=== PATIENT | male | born 1945 | race Caucasian/White ===

== ENCOUNTER 2017-10-19 03:11 | Inpatient (IN) | payer MEDICARE, OTHER ==
[~2017-10-19] VITALS: Ht 185.4 cm; Wt 103.8 kg
[~2017-10-19 03:11] MED LIST: AMIO200T42 PO; AMLO2.5T PO; ASPI-496 PO; CARV-39 PO; CLOP75TA PO; CYAN10005 PO; FOLI-17 PO; IBUP200T49 PO; LISI40TA PO; OMEP20TA62 PO; ROSU10TA PO; SILD100T PO; TRAZ100T15 PO
[2017-10-19 04:26] VITALS: BP 151/70
[2017-10-19] MEDS ORDERED: ACETAMINOPHEN 325 MG TABLET PO PRN ×2 (04:30→06:30)
[2017-10-19] MEDS ORDERED: ENOXAPARIN 40 MG/0.4 ML SQ SCH (04:30)
[2017-10-19] MEDS ORDERED: TEMAZEPAM 15 MG CAPSULE PO PRN (04:30)
[2017-10-19] MEDS ORDERED: ONDANSETRON 2MG/ML, 2ML IVPush PRN ×2 (04:30→06:30)
[2017-10-19] MEDS ORDERED: DOCUSATE 100 MG CAPSULE PO PRN ×2 (04:30→06:30)
[2017-10-19] MEDS ORDERED: AMIODARONE 900 MG in DEXTROSE 5% 482 ML IV PRN (05:00)
[2017-10-19 05:53] LABS: BASOPHILS # (AUTO) 0.03 x10^3/uL (0-0.1); BASOPHILS % (AUTO) 1 % (0-1); EOSINOPHILS # (AUTO) 0.17 x10^3/uL (0-0.4); EOSINOPHILS % (AUTO) 3 % (1-7); LYMPHOCYTES # (AUTO) 1.39 x10^3/uL (1-3.4); LYMPHOCYTES % (AUTO) 26 % (22-44); MD NO; MEAN CORPUSCULAR HEMOGLOBIN 33.5 pg (27.5-34.5); MEAN CORPUSCULAR HGB CONC 33.8 g/dL (33.2-36.2); MEAN CORPUSCULAR VOLUME 99.1 fL (81-97); MEAN PLATELET VOLUME 8.2 fL (7.4-10.4); MONOCYTES # (AUTO) 0.58 x10^3/uL (0.2-0.8); MONOCYTES % (AUTO) 11 % (2-9); NEUTROPHILS # (AUTO) 3.31 x10^3/uL (1.8-6.8); NEUTROPHILS % (AUTO) 61 % (42-75); PLATELET COUNT 121 x10^3/uL (130-400); RED BLOOD COUNT 3.68 x10^6/uL (4.38-5.82); RED CELL DISTRIBUTION WIDTH 13.9 % (9.4-14.8)
[2017-10-19] MEDS ORDERED: ENALAPRILAT 1.25 MG/ML, 2ML IVPush PRN (06:30)
[2017-10-19] MEDS ORDERED: morphine SULFATE 10 MG/ML, 1ML IVPush PRN (06:30)
[2017-10-19] MEDS ORDERED: BISACODYL 10 MG SUPP PR PRN (06:30)
[2017-10-19] MEDS ORDERED: POLYETHYLENE GLYCOL 17 GM PACKET PO PRN (06:30)
[2017-10-19] MEDS: HEPARIN 5,000 UNITS/ML, 1ML SQ SCH ×3 (06:30→23:19)
[2017-10-19] MEDS ORDERED: hydrALAzine 20 MG/ML, 1ML IVPush PRN (06:30)
[2017-10-19] MEDS ORDERED: OXYcodone IR 5MG TABLET PO PRN (06:30)
[2017-10-19 06:50] VITALS: BP 130/65
[2017-10-19] MEDS ORDERED: LOVENOX/HEPARIN MC SCH (07:00)
[2017-10-19 07:51] LABS: CHOLESTEROL, TOTAL 93 mg/dL (140-239); TRIGLYCERIDES 84 mg/dL (50-200); VLDL CHOLESTEROL 17 mg/dL (0-25)
[2017-10-19 07:55] LABS: FREE T4 (FREE THYROXINE) 1.48 ng/dL (0.76-1.46); HDL CHOL % 33 % (26-37); HDL CHOLESTEROL (DIRECT) 31 mg/dL (40-60); LDL CHOLESTEROL,CALCULATED 45 mg/dL (54-169); LDL/HDL RATIO 1.5 (0.5-3.0); TROPONIN I 0.109 ng/mL (0.000-0.045)
[2017-10-19 08:17] LABS: THYROID STIMULATING HORMONE 0.785 mIU/L (0.358-3.740)
[2017-10-19 08:30] VITALS: BP 99/72
[2017-10-19 09:40] LABS: MICROSCOPIC NOT IND
[2017-10-19 09:54] LABS: CULTURE INDICATED? NO
[2017-10-19] MEDS: ASPIRIN 81 MG TABLET EC PO SCH (11:34)
[2017-10-19] MEDS: AMLODIPINE 5 MG TABLET PO SCH (11:34)
[2017-10-19] MEDS: FOLIC ACID 1 MG TABLET PO SCH (11:34)
[2017-10-19] MEDS: CARVEDILOL 25 MG TABLET PO SCH ×2 (11:34→21:29)
[2017-10-19] MEDS: OMEPRAZOLE 20 MG CAPSULE.DR PO SCH (11:35)
[2017-10-19] MEDS: CLOPIDOGREL 75 MG TABLET PO SCH (11:35)
[2017-10-19] MEDS: LISINOPRIL 20 MG TABLET PO SCH (11:36)
[2017-10-19] MEDS: CYANOCOBALAMIN 1,000 MCG TABLET PO SCH (11:36)
[2017-10-19 12:44] LABS: TROPONIN I 0.083 ng/mL (0.000-0.045)
[2017-10-19 14:00] VITALS: BP 123/58
[2017-10-19 16:19] VITALS: BP 129/69
[2017-10-19 19:46] VITALS: BP 124/65
[2017-10-19] MEDS ORDERED: AMIO200T42 PO (21:19)
[2017-10-19] MEDS ORDERED: METF500T4 PO (21:19)
[2017-10-19] MEDS ORDERED: ATOR40TA78 PO (21:19)
[2017-10-19] MEDS: TRAZODONE 100MG TABLET PO SCH (21:27)
[2017-10-19] MEDS: TEMPLATE NON-FORMULARY MED. (Rosuvastatin Calcium** (Crestor**) 10 MG) HOMEMEDPO SCH (21:29)
[2017-10-20 01:37] VITALS: BP 136/64
[2017-10-20 05:46] LABS: CHLORIDE 110 mmol/L (98-107)
[2017-10-20 05:54] LABS: ALANINE AMINOTRANSFERASE 25 U/L (12-78); ALBUMIN 3.1 g/dL (3.4-5.0); ALKALINE PHOSPHATASE 115 U/L (45-117); ANION GAP 3 mmol/L (5-15); BILIRUBIN,TOTAL 0.5 mg/dL (0.2-1.0); CALCIUM 8.5 mg/dL (8.5-10.1); CREATININE 0.84 mg/dL (0.7-1.3); TOTAL PROTEIN 6.4 g/dL (6.4-8.2)
[2017-10-20 07:05] VITALS: BP 147/62
[2017-10-20] MEDS ORDERED: ERGOCALCIFEROL 50,000 UNIT CAPSULE PO SCH (08:30)
[2017-10-20] MEDS: AMLODIPINE 5 MG TABLET PO SCH (08:34)
[2017-10-20] MEDS: LISINOPRIL 20 MG TABLET PO SCH (08:35)
[2017-10-20] MEDS: CYANOCOBALAMIN 1,000 MCG TABLET PO SCH (08:35)
[2017-10-20] MEDS: OMEPRAZOLE 20 MG CAPSULE.DR PO SCH (08:36)
[2017-10-20] MEDS: ASPIRIN 81 MG TABLET EC PO SCH (08:36)
[2017-10-20] MEDS: FOLIC ACID 1 MG TABLET PO SCH (08:36)
[2017-10-20] MEDS: CLOPIDOGREL 75 MG TABLET PO SCH (08:37)
[2017-10-20] MEDS: HEPARIN 5,000 UNITS/ML, 1ML SQ SCH ×3 (08:37→23:13)
[2017-10-20] MEDS ORDERED: AMIODARONE 200 MG TABLET ONE (08:40)
[2017-10-20] MEDS: AMIODARONE 200 MG TABLET PO SCH (08:46)
[2017-10-20] MEDS ORDERED: CARVEDILOL 25 MG TABLET PO SCH (09:00)
[2017-10-20 12:25] VITALS: BP 119/70
[2017-10-20 19:23] VITALS: BP 124/61
[2017-10-20] MEDS: TEMPLATE NON-FORMULARY MED. (Rosuvastatin Calcium** (Crestor**) 10 MG) HOMEMEDPO SCH (21:31)
[2017-10-20] MEDS: TRAZODONE 100MG TABLET PO SCH (21:31)
[2017-10-21 00:24] VITALS: BP 120/60
[2017-10-21 05:20] LABS: ANION GAP 5 mmol/L (5-15); CALCIUM 8.2 mg/dL (8.5-10.1); CHLORIDE 111 mmol/L (98-107)
[2017-10-21 05:21] LABS: CREATININE 0.87 mg/dL (0.7-1.3)
[2017-10-21] MEDS: HEPARIN 5,000 UNITS/ML, 1ML SQ SCH (07:00)
[2017-10-21 07:53] VITALS: BP 121/68
[2017-10-21] MEDS: OMEPRAZOLE 20 MG CAPSULE.DR PO SCH (08:41)
[2017-10-21] MEDS: AMIODARONE 200 MG TABLET PO SCH (08:41)
[2017-10-21] MEDS: AMLODIPINE 5 MG TABLET PO SCH (08:41)
[2017-10-21] MEDS: LISINOPRIL 20 MG TABLET PO SCH (08:41)
[2017-10-21] MEDS: ASPIRIN 81 MG TABLET EC PO SCH (08:41)
[2017-10-21] MEDS: CYANOCOBALAMIN 1,000 MCG TABLET PO SCH (08:41)
[2017-10-21] MEDS: FOLIC ACID 1 MG TABLET PO SCH (08:41)
[2017-10-21] MEDS: CLOPIDOGREL 75 MG TABLET PO SCH (08:42)
[2017-10-21] MEDS ORDERED: CARV25TA12 PO (08:49)
[2017-10-21] MEDS ORDERED: ERGO500017 PO (08:49)
[2017-10-21] MEDS ORDERED: AMIO200T42 PO (08:49)
[2017-10-21] MEDS ORDERED: CYAN10005 PO (08:49)
[2017-10-21] MEDS ORDERED: CARVEDILOL 25 MG TABLET PO SCH (09:00)
== END 2017-10-21 12:25 | disposition home or self-care (01) | DRG 309 ==
LOC: 5SO 04:21 → CCU 07:46 → 5SO 16:08
PROVIDERS: ADMIT Internal Medicine; ATTEND Internal Medicine
DX: I47.2 Ventricular tachycardia (principal); E44.0 Moderate protein-calorie malnutrition; I25.82 Chronic total occlusion of coronary artery; I25.5 Ischemic cardiomyopathy; I25.10 Atherosclerotic heart disease of native coronary artery without angina pectoris; E78.5 Hyperlipidemia, unspecified; I10 Essential (primary) hypertension; K21.9 Gastro-esophageal reflux disease without esophagitis; Z68.30 Body mass index [BMI] 30.0-30.9, adult; E55.9 Vitamin D deficiency, unspecified; E66.9 Obesity, unspecified; I25.2 Old myocardial infarction; I34.0 Nonrheumatic mitral (valve) insufficiency; I44.0 Atrioventricular block, first degree; N40.0 Benign prostatic hyperplasia without lower urinary tract symptoms; Z86.79 Personal history of other diseases of the circulatory system; Z87.891 Personal history of nicotine dependence; Z95.5 Presence of coronary angioplasty implant and graft; Z95.810 Presence of automatic (implantable) cardiac defibrillator
CPT/HCPCS: 36415; 80048; 80053; 80061; 81003; 82306; 82607; 83036; 83735; 84439; 84443; 84484; 85025; 87081; 93005; 99285; J1644; J1650; J0282; J7060

== ENCOUNTER 2018-08-16 11:24 | Emergency (ER) | payer MEDICARE, OTHER ==
[~2018-08-16] VITALS: Ht 185.4 cm; Wt 106.4 kg
[~2018-08-16 11:24] MED LIST changes: -AMLO2.5T PO; +AMLO2.5T3 PO; +ATOR40TA78 PO; +CARV25TA12 PO; +ERGO500017 PO; +METF500T17 PO; +TRAZ-137 PO; -TRAZ100T15 PO
[2018-08-16 12:11] LABS: BASOPHILS # (AUTO) 0.02 x10^3/uL (0-0.1); BASOPHILS % (AUTO) 0 % (0-1); EOSINOPHILS # (AUTO) 0.25 x10^3/uL (0-0.4); EOSINOPHILS % (AUTO) 5 % (1-7); LYMPHOCYTES # (AUTO) 1.18 x10^3/uL (1-3.4); LYMPHOCYTES % (AUTO) 22 % (22-44); MD NO; MEAN CORPUSCULAR HEMOGLOBIN 33.4 pg (27.5-34.5); MEAN CORPUSCULAR HGB CONC 33.8 g/dL (33.2-36.2); MEAN CORPUSCULAR VOLUME 98.8 fL (81-97); MEAN PLATELET VOLUME 8.5 fL (7.4-10.4); MONOCYTES # (AUTO) 0.49 x10^3/uL (0.2-0.8); MONOCYTES % (AUTO) 9 % (2-9); NEUTROPHILS # (AUTO) 3.31 x10^3/uL (1.8-6.8); NEUTROPHILS % (AUTO) 63 % (42-75); PLATELET COUNT 137 x10^3/uL (130-400); RED BLOOD COUNT 4.16 x10^6/uL (4.38-5.82); RED CELL DISTRIBUTION WIDTH 14.1 % (9.4-14.8)
[2018-08-16 12:24] LABS: ALBUMIN 3.5 g/dL (3.4-5.0); ANION GAP 6 mmol/L (5-15); CALCIUM 8.3 mg/dL (8.5-10.1); CHLORIDE 109 mmol/L (98-107); CREATININE 1.04 mg/dL (0.7-1.3)
[2018-08-16 12:34] LABS: ALANINE AMINOTRANSFERASE 29 U/L (12-78); ALKALINE PHOSPHATASE 119 U/L (45-117); BILIRUBIN,TOTAL 0.6 mg/dL (0.2-1.0); TOTAL PROTEIN 7.1 g/dL (6.4-8.2)
[2018-08-16 13:49] VITALS: BP 142/80
== END 2018-08-16 13:51 | disposition home or self-care (01) ==
LOC: ED 12:41
DX: I87.2 Venous insufficiency (chronic) (peripheral) (principal); I10 Essential (primary) hypertension
CPT/HCPCS: 36415; 71045; 80053; 83880; 85025; 93005; 93970; 99285

== ENCOUNTER → 2019-01-14 | Outpatient (CLI) | payer MEDICARE, OTHER ==
[~2019-01-14] MED LIST changes: -AMLO2.5T3 PO; +AMLO2.5T5 PO; +REGADENOSON 0.4 MG/5 ML SYRINGE ONE; -ROSU10TA PO; +ROSU10TA2 PO
== END | disposition home or self-care (01) ==
LOC: CFH 07:30
PROVIDERS: ATTEND Internal Medicine Cardiovascular Disease
DX: Z01.810 Encounter for preprocedural cardiovascular examination (principal); I25.10 Atherosclerotic heart disease of native coronary artery without angina pectoris; I10 Essential (primary) hypertension
CPT/HCPCS: 78452; 93017; 93306; A9502; J2785

== ENCOUNTER 2019-05-05 08:32 | Outpatient (CLI) | payer MEDICARE, OTHER | END 2019-05-05 23:59 | disposition home or self-care (01) | LOC: STAR 08:32 | PROVIDERS: ATTEND Neurological Surgery | DX: Z01.818 Encounter for other preprocedural examination (principal); M48.062 Spinal stenosis, lumbar region with neurogenic claudication; M47.814 Spondylosis without myelopathy or radiculopathy, thoracic region; R00.1 Bradycardia, unspecified; Z95.0 Presence of cardiac pacemaker | CPT/HCPCS: 36415; 71046; 80053; 85025; 85610; 85730; 93005 ==

== ENCOUNTER 2019-05-15 06:59 | Inpatient (IN) | payer MEDICARE, OTHER ==
[~2019-05-15] VITALS: Ht 182.9 cm; Wt 109.5 kg
[2019-05-17 06:51] VITALS: BP 109/64
== END 2019-05-17 11:50 | disposition home health service (06) | DRG 502 ==
LOC: OUT 06:59 → 4NOR 12:31 → OUT 12:35 → DCLOUNGE 05-17 11:40
PROVIDERS: ADMIT Neurological Surgery; ATTEND Neurological Surgery
PROC: 01NB0ZZ Release Lumbar Nerve, Open Approach (ICD-10-PCS; principal; 2019-05-15)
PROC: 0JU Subcutaneous Tissue and Fascia, Supplement (ICD-10-PCS; 2019-05-15)
DX: M48.061 Spinal stenosis, lumbar region without neurogenic claudication (principal); I48.91 Unspecified atrial fibrillation; I11.9 Hypertensive heart disease without heart failure; E78.5 Hyperlipidemia, unspecified; E11.9 Type 2 diabetes mellitus without complications; M54.16 Radiculopathy, lumbar region; G47.33 Obstructive sleep apnea (adult) (pediatric); Z87.891 Personal history of nicotine dependence; Z82.49 Family history of ischemic heart disease and other diseases of the circulatory system; I25.2 Old myocardial infarction; Z95.0 Presence of cardiac pacemaker; Z79.82 Long term (current) use of aspirin; Z79.02 Long term (current) use of antithrombotics/antiplatelets; Z86.73 Personal history of transient ischemic attack (TIA), and cerebral infarction without residual deficits
CPT/HCPCS: 36415; 72100; 85610; 85730; G0378; J0690; J1170; J2250; J2270; J2704; J3010; J3480; Q0162; J0330; J7120

== ENCOUNTER → 2019-07-31 | Outpatient (CLI) | payer MEDICARE, OTHER ==
[~2019-07-31] MED LIST changes: +ALFU10TA PO; +AMLO10TA8 PO; +CHOL10003 PO; +CYAN-27 PO; -CYAN10005 PO; +FINA5TAB4 PO; +HYDR-36 PO; +MAGN420T PO; -REGADENOSON 0.4 MG/5 ML SYRINGE ONE; +SODI100P18 DT; +TURM500C4 PO
== END | disposition home or self-care (01) ==
LOC: CFH 14:56
PROVIDERS: ATTEND Internal Medicine Cardiovascular Disease
DX: I25.10 Atherosclerotic heart disease of native coronary artery without angina pectoris (principal); E11.9 Type 2 diabetes mellitus without complications; E78.00 Pure hypercholesterolemia, unspecified; I10 Essential (primary) hypertension; I25.2 Old myocardial infarction; I47.2 Ventricular tachycardia; Z51.81 Encounter for therapeutic drug level monitoring; Z95.810 Presence of automatic (implantable) cardiac defibrillator; Z87.891 Personal history of nicotine dependence; Z82.49 Family history of ischemic heart disease and other diseases of the circulatory system; Z80.9 Family history of malignant neoplasm, unspecified
CPT/HCPCS: 71046

== ENCOUNTER 2019-09-02 13:28 | Outpatient (CLI) | payer MEDICARE, OTHER | END 2019-09-02 23:59 | disposition home or self-care (01) | LOC: CVU 13:28 | PROVIDERS: ATTEND Internal Medicine Cardiovascular Disease | DX: I08.3 Combined rheumatic disorders of mitral, aortic and tricuspid valves (principal); I25.10 Atherosclerotic heart disease of native coronary artery without angina pectoris; Z95.5 Presence of coronary angioplasty implant and graft | CPT/HCPCS: 93306 ==

== ENCOUNTER → 2020-01-05 | Outpatient (CLI) | payer MEDICARE, OTHER ==
[~2020-01-05] MED LIST changes: -TRAZ-137 PO; +TRAZ-175 PO
[2020-01-05 13:03] LABS: ALANINE AMINOTRANSFERASE 31 U/L (12-78); ALBUMIN 3.5 g/dL (3.4-5.0); ANION GAP 6 mmol/L (5-15); BASOPHILS # (AUTO) 0.03 x10^3/uL (0-0.1); BASOPHILS % (AUTO) 1 % (0-1); CALCIUM 9.2 mg/dL (8.5-10.1); CHLORIDE 109 mmol/L (98-107); EOSINOPHILS # (AUTO) 0.21 x10^3/uL (0-0.4); EOSINOPHILS % (AUTO) 3 % (1-7); LYMPHOCYTES # (AUTO) 1.24 x10^3/uL (1-3.4); LYMPHOCYTES % (AUTO) 20 % (22-44); MD NO; MEAN CORPUSCULAR HEMOGLOBIN 32.5 pg (27.5-34.5); MEAN CORPUSCULAR HGB CONC 33.4 g/dL (33.2-36.2); MEAN CORPUSCULAR VOLUME 97.4 fL (81-97); MEAN PLATELET VOLUME 8.3 fL (7.4-10.4); MONOCYTES # (AUTO) 0.69 x10^3/uL (0.2-0.8); MONOCYTES % (AUTO) 11 % (2-9); NEUTROPHILS # (AUTO) 4.14 x10^3/uL (1.8-6.8); NEUTROPHILS % (AUTO) 66 % (42-75); PLATELET COUNT 138 x10^3/uL (130-400); RED BLOOD COUNT 4.35 x10^6/uL (4.38-5.82); RED CELL DISTRIBUTION WIDTH 14.8 % (9.4-14.8)
[2020-01-05 13:17] LABS: ALKALINE PHOSPHATASE 108 U/L (45-117); BILIRUBIN,TOTAL 0.5 mg/dL (0.2-1.0); CHOL/HDL RATIO 3.4; CHOLESTEROL, TOTAL 140 mg/dL (140-239); HDL CHOL % 29 % (26-37); HDL CHOLESTEROL (DIRECT) 41 mg/dL (40-60); LDL CHOLESTEROL,CALCULATED 69 mg/dL (54-169); LDL/HDL RATIO 1.7 (0.5-3.0); T4 (THYROXINE) 12.7 mcg/dL (4.5-12.1); TRIGLYCERIDES 150 mg/dL (50-200); VLDL CHOLESTEROL 30 mg/dL (0-25)
== END | disposition home or self-care (01) ==
LOC: CFH 09:46
PROVIDERS: ATTEND Internal Medicine Cardiovascular Disease
DX: Z51.81 Encounter for therapeutic drug level monitoring (principal); E11.9 Type 2 diabetes mellitus without complications; E78.00 Pure hypercholesterolemia, unspecified; I25.10 Atherosclerotic heart disease of native coronary artery without angina pectoris; I25.2 Old myocardial infarction; I10 Essential (primary) hypertension; I47.2 Ventricular tachycardia; J98.11 Atelectasis; Z95.810 Presence of automatic (implantable) cardiac defibrillator
CPT/HCPCS: 36415; 71046; 80053; 80061; 84436; 84481; 85025

== ENCOUNTER 2020-02-25 09:57 | Outpatient (CLI) | payer MEDICARE, OTHER ==
[~2020-02-25 09:57] MED LIST changes: +HYDR-3246 PO; -HYDR-36 PO
[2020-02-25 10:55] LABS: BASOPHILS # (AUTO) 0.03 x10^3/uL (0-0.1); BASOPHILS % (AUTO) 1 % (0-1); EOSINOPHILS # (AUTO) 0.16 x10^3/uL (0-0.4); EOSINOPHILS % (AUTO) 3 % (1-7); LYMPHOCYTES # (AUTO) 1.08 x10^3/uL (1-3.4); LYMPHOCYTES % (AUTO) 20 % (22-44); MD NO; MEAN CORPUSCULAR HEMOGLOBIN 33.3 pg (27.5-34.5); MEAN CORPUSCULAR HGB CONC 33.1 g/dL (33.2-36.2); MEAN CORPUSCULAR VOLUME 100.6 fL (81-97); MEAN PLATELET VOLUME 7.4 fL (7.4-10.4); MONOCYTES # (AUTO) 0.62 x10^3/uL (0.2-0.8); MONOCYTES % (AUTO) 11 % (2-9); NEUTROPHILS # (AUTO) 3.57 x10^3/uL (1.8-6.8); NEUTROPHILS % (AUTO) 65 % (42-75); PLATELET COUNT 132 x10^3/uL (130-400); RED BLOOD COUNT 4.17 x10^6/uL (4.38-5.82); RED CELL DISTRIBUTION WIDTH 14.9 % (9.4-14.8)
[2020-02-25 11:14] LABS: INTERNATIONAL NORMALIZED RATIO 1.04 (0.93-1.1)
[2020-02-25 11:37] LABS: ALBUMIN 3.4 g/dL (3.4-5.0); ANION GAP 4 mmol/L (5-15); CALCIUM 9.1 mg/dL (8.5-10.1); CHLORIDE 109 mmol/L (98-107)
[2020-02-25 11:46] LABS: ALANINE AMINOTRANSFERASE 24 U/L (12-78); ALKALINE PHOSPHATASE 113 U/L (45-117); BILIRUBIN,TOTAL 0.7 mg/dL (0.2-1.0); CREATININE 1.01 mg/dL (0.7-1.3); TOTAL PROTEIN 6.8 g/dL (6.4-8.2)
[2020-02-25] MEDS ORDERED: HYDR-3622 PO (11:55)
[2020-02-25] MEDS ORDERED: CHOL10003 PO (11:55)
[2020-02-25] MEDS ORDERED: VITA40TA PO (11:55)
[2020-02-25] MEDS ORDERED: CLOP75TA PO (11:55)
== END 2020-02-25 23:59 | disposition home or self-care (01) ==
LOC: STAR 09:57
PROVIDERS: ATTEND Neurological Surgery
DX: Z01.818 Encounter for other preprocedural examination (principal); R00.1 Bradycardia, unspecified; I44.0 Atrioventricular block, first degree; M48.062 Spinal stenosis, lumbar region with neurogenic claudication
CPT/HCPCS: 36415; 71046; 80053; 85025; 85610; 85730; 93005

== ENCOUNTER 2020-10-26 02:36 | Emergency (ER) | payer MEDICARE, OTHER ==
[~2020-10-26] VITALS: Ht 182.9 cm; Wt 105.0 kg
[~2020-10-26 02:36] MED LIST changes: +AMLO-211 PO; -AMLO10TA8 PO; -HYDR-3246 PO; +HYDR-3248 PO; +HYDR-3622 PO; +VITA40TA PO
[2020-10-26] MEDS ORDERED: ONDANSETRON 2MG/ML, 2ML IVPush ONE (03:00)
[2020-10-26] MEDS ORDERED: MORPHINE SULFATE 4 MG/ML, 1ML IVPush PRN (03:00)
[2020-10-26] MEDS ORDERED: SODIUM CHLORIDE FLUSH 10ML SYR IVF ONE (03:00)
--- NOTE | 2020-10-26 03:04 | NUR ---
ANATOMICAL EMBALMER: SPOKE WITH PATIENT, PATIENT DOES NOT WANT MORPHINE OR ZOFRAN AT THIS TIME. PATIENT STATED THAT HE WILL NOTIFY STAFF IF HE NEEDS PAIN MEDICATION. URINAL GIVEN.
--- NOTE | 2020-10-26 05:11 | NUR ---
Pt calm, resting, stable vs. warm blanket given. Will continue to monitor.
[2020-10-26 06:53] VITALS: BP 134/87
--- NOTE | 2020-10-26 06:55 | NUR ---
Pt DC'd to home with written and verbal instructions. Pt with no complaints. Pt states understanding. IV dc'd intact. Pt verbalizes understanding of DC instructions. Pt ambulatory out of ED without difficutly.
== END 2020-10-26 06:54 | disposition home or self-care (01) ==
LOC: ED 06:31
DX: S39.012A Strain of muscle, fascia and tendon of lower back, initial encounter (principal); I71.4 Abdominal aortic aneurysm, without rupture; R94.31 Abnormal electrocardiogram [ECG] [EKG]; I10 Essential (primary) hypertension; K21.9 Gastro-esophageal reflux disease without esophagitis; I25.10 Atherosclerotic heart disease of native coronary artery without angina pectoris; Z95.0 Presence of cardiac pacemaker; X58.XXXA Exposure to other specified factors, initial encounter; Y93.89 Activity, other specified; Y92.89 Other specified places as the place of occurrence of the external cause; Y99.8 Other external cause status
CPT/HCPCS: 93005; 99283

== ENCOUNTER 2020-12-25 09:17 | Emergency (ER) | payer MEDICARE, OTHER ==
[~2020-12-25] VITALS: Ht 185.4 cm; Wt 113.3 kg
[~2020-12-25 09:17] MED LIST changes: -FOLI-17 PO; +FOLI1TAB32 PO; -LISI40TA PO; +LISI40TA9 PO
[2020-12-25] MEDS ORDERED: ONDANSETRON ODT 4 MG ONE (09:48)
[2020-12-25] MEDS ORDERED: HYDROcodone/APAP 5/325 TABLET ONE (09:49)
[2020-12-25] MEDS ORDERED: CHOL10003 PO (09:54)
[2020-12-25] MEDS ORDERED: CYAN-27 PO (09:55)
[2020-12-25] MEDS ORDERED: ATOR-2 PO (09:55)
--- NOTE | 2020-12-25 09:55 | NUR ---
ASSUMED CARE OF PATIENT. ULTRASOUND IN PROGRESS. PT MEDICATED PER EMAR. PT RESTING WITH NO COMPLAINTS.
[2020-12-25] MEDS ORDERED: HYDROcodone/APAP 5/325 TABLET PO ONE (10:00)
[2020-12-25] MEDS ORDERED: ONDANSETRON ODT 4 MG PO ONE (10:30)
[2020-12-25 10:48] LABS: BASOPHILS % (AUTO) 1 % (0-1); EOSINOPHILS % (AUTO) 3 % (1-7); LYMPHOCYTES % (AUTO) 19 % (22-44); MEAN CORPUSCULAR HEMOGLOBIN 33.3 pg (27.5-34.5); MEAN CORPUSCULAR HGB CONC 33.8 g/dL (33.2-36.2); MONOCYTES % (AUTO) 12 % (2-9); NEUTROPHILS % (AUTO) 65 % (42-75); PLATELET COUNT 121 x10^3/uL (130-400); RED BLOOD COUNT 3.93 x10^6/uL (4.38-5.82); RED CELL DISTRIBUTION WIDTH 14.3 % (9.4-14.8)
[2020-12-25 10:50] LABS: MD NO
[2020-12-25 10:55] LABS: ANION GAP 8 mmol/L (5-15); CALCIUM 8.8 mg/dL (8.5-10.1); CHLORIDE 109 mmol/L (98-107); CREATININE 0.97 mg/dL (0.7-1.3)
[2020-12-25 11:00] VITALS: BP 109/41
--- NOTE | 2020-12-25 11:13 | NUR ---
Patient given discharge instructions and they have confirmed that they understand the instructions. Patient ambulatory with steady gait.
== END 2020-12-25 11:15 | disposition home or self-care (01) ==
LOC: ED 11:14
DX: S80.02XA Contusion of left knee, initial encounter (principal); L03.116 Cellulitis of left lower limb; R00.1 Bradycardia, unspecified; E78.5 Hyperlipidemia, unspecified; I10 Essential (primary) hypertension; I25.10 Atherosclerotic heart disease of native coronary artery without angina pectoris; K21.9 Gastro-esophageal reflux disease without esophagitis; Z95.0 Presence of cardiac pacemaker; Z88.1 Allergy status to other antibiotic agents; W22.8XXA Striking against or struck by other objects, initial encounter; Y93.89 Activity, other specified; Y92.009 Unspecified place in unspecified non-institutional (private) residence as the place of occurrence of the external cause; Y99.8 Other external cause status
CPT/HCPCS: 36415; 80048; 85025; 99285

== ENCOUNTER → 2021-01-03 | Outpatient (CLI) | payer MEDICARE, OTHER ==
[~2021-01-03] MED LIST changes: +ATOR-2 PO
[2021-01-03 11:10] LABS: BASOPHILS % (AUTO) 1 % (0-1); EOSINOPHILS % (AUTO) 2 % (1-7); LYMPHOCYTES % (AUTO) 22 % (22-44); MD NO; MEAN CORPUSCULAR HEMOGLOBIN 33.1 pg (27.5-34.5); MEAN CORPUSCULAR HGB CONC 33.8 g/dL (33.2-36.2); MONOCYTES % (AUTO) 13 % (2-9); NEUTROPHILS % (AUTO) 62 % (42-75); PLATELET COUNT 157 x10^3/uL (130-400); RED BLOOD COUNT 4.16 x10^6/uL (4.38-5.82); RED CELL DISTRIBUTION WIDTH 14.8 % (9.4-14.8)
[2021-01-03 11:19] LABS: ALBUMIN 3.9 g/dL (3.4-5.0); ANION GAP 5 mmol/L (5-15); CALCIUM 9.6 mg/dL (8.5-10.1); CHLORIDE 108 mmol/L (98-107)
[2021-01-03 11:29] LABS: ALANINE AMINOTRANSFERASE 33 U/L (12-78); ALKALINE PHOSPHATASE 136 U/L (45-117); BILIRUBIN,TOTAL 0.7 mg/dL (0.2-1.0); CHOL/HDL RATIO 3.2; CHOLESTEROL, TOTAL 141 mg/dL (140-239); CREATININE 1.24 mg/dL (0.7-1.3); HDL CHOL % 31 % (26-37); HDL CHOLESTEROL (DIRECT) 44 mg/dL (40-60); LDL CHOLESTEROL,CALCULATED 67 mg/dL (54-169); LDL/HDL RATIO 1.5 (0.5-3.0); T4 (THYROXINE) 12.7 mcg/dL (4.5-12.1); TOTAL PROTEIN 7.6 g/dL (6.4-8.2); TRIGLYCERIDES 148 mg/dL (50-200); VLDL CHOLESTEROL 30 mg/dL (0-25)
== END | disposition home or self-care (01) ==
LOC: RAD 10:17
PROVIDERS: ATTEND Internal Medicine Cardiovascular Disease
DX: J98.11 Atelectasis (principal); Z51.81 Encounter for therapeutic drug level monitoring; E11.9 Type 2 diabetes mellitus without complications; I25.10 Atherosclerotic heart disease of native coronary artery without angina pectoris; E78.00 Pure hypercholesterolemia, unspecified; I25.2 Old myocardial infarction; I47.2 Ventricular tachycardia; Z95.810 Presence of automatic (implantable) cardiac defibrillator; I10 Essential (primary) hypertension; I21.4 Non-ST elevation (NSTEMI) myocardial infarction; R09.02 Hypoxemia; G47.30 Sleep apnea, unspecified; G47.33 Obstructive sleep apnea (adult) (pediatric)
CPT/HCPCS: 36415; 71046; 80053; 80061; 82043; 82570; 83036; 84436; 84443; 84481; 85025

== ENCOUNTER → 2021-01-26 | Outpatient (CLI) | payer MEDICARE, OTHER ==
[~2021-01-26] MED LIST changes: +REGADENOSON 0.4 MG/5 ML SYRINGE ONE
== END | disposition home or self-care (01) ==
LOC: CFH 07:28
PROVIDERS: ATTEND Internal Medicine Cardiovascular Disease
DX: I21.19 ST elevation (STEMI) myocardial infarction involving other coronary artery of inferior wall (principal); I47.2 Ventricular tachycardia; I25.10 Atherosclerotic heart disease of native coronary artery without angina pectoris
CPT/HCPCS: 78452; 93017; A9502; J2785

== ENCOUNTER → 2021-02-03 | Outpatient (CLI) | payer MEDICARE, OTHER ==
[~2021-02-03] MED LIST changes: -REGADENOSON 0.4 MG/5 ML SYRINGE ONE
== END | disposition home or self-care (01) ==
LOC: CVU 12:17
PROVIDERS: ATTEND Internal Medicine Cardiovascular Disease
DX: I08.3 Combined rheumatic disorders of mitral, aortic and tricuspid valves (principal); I11.9 Hypertensive heart disease without heart failure; I25.10 Atherosclerotic heart disease of native coronary artery without angina pectoris; I47.2 Ventricular tachycardia
CPT/HCPCS: 93306; 93356